=== PATIENT | female | born 1995 | race Caucasian/White ===

== ENCOUNTER 2016-12-26 19:56 | Emergency (ER) | payer BC, OTHER ==
[~2016-12-26] VITALS: Ht 157.5 cm; Wt 51.0 kg
[2016-12-26 20:02] VITALS: TEMP 36.9; Ht 157.5 cm; Wt 51.0 kg
[2016-12-26] MEDS ORDERED: SERT50TA PO (20:14)
[2016-12-26 21:01] LABS: BASO % 0.9 %; BASO ABS # 0.06 K/uL (0-0.2); COMPLETE YES; EOS % 0.8 %; IG% 0.2 %; LYMPH % 44.7 %; LYMPH ABS # 2.88 K/uL (1.2-3.4); MEAN CELL VOLUME 86.6 fL (80-100); MEAN CORPUSCULAR HEMOGLOBIN 30.5 pg (25-34); MEAN CORPUSCULAR HGB CONC 35.2 g/dl (32-36); MEAN PLATELET VOLUME 8.7 fL (7.4-10.4); MONO % 8.2 %; NEUT % 45.2 %; PLATELET COUNT 250 K/uL (130-400); RED BLOOD COUNT 4.85 M/uL (4.2-5.4); WHITE BLOOD COUNT 6.45 K/uL (4.8-10.8)
[2016-12-26 21:09] VITALS: O2SAT 97
[2016-12-26 21:21] LABS: INR 1.1 (0.9-1.1); PARTIAL THROMBOPLASTIN RATIO 1.1; PROTHROMBIN TIME (PATIENT) 11.4 SECONDS (9.0-12.0)
[2016-12-26 21:22] LABS: ALT/SGPT 26 U/L (12-78); BLOOD UREA NITROGEN 16 mg/dl (7-18); BUN/CREATININE RATIO 18.8 (10-20); C-REACTIVE PROTEIN < 0.29 mg/dl (0-0.29); CARBON DIOXIDE 26 mmol/L (21-32); CHLORIDE 105 mmol/L (98-107); CREATININE 0.86 mg/dl (0.60-1.20); GLUCOSE 85 mg/dl (70-99); MAGNESIUM 2.2 mg/dl (1.8-2.4); POTASSIUM 3.4 mmol/L (3.5-5.1); SODIUM 139 mmol/L (136-145)
[2016-12-26 21:33] LABS: ALB/GLOB RATIO 1.4 (0.9-2); ALKALINE PHOSPHATASE 71 U/L (45-117); AST/SGOT 16 U/L (15-37); THYROID STIMULATING HORMONE 0.508 uIu/ml (0.300-4.500)
[2016-12-26 21:40] LABS: URINE APPEARANCE CLEAR (CLEAR); URINE BILIRUBIN NEG (NEG); URINE COLOR YELLOW; URINE NITRITE NEG (NEG); URINE PH 6.5 (4.5-7.5); URINE SPECIFIC GRAVITY 1.015 (1.000-1.030); UROBILINOGEN NEG (NEG); ZZUR CULT IF INDIC CLEAN CATCH NO
[2016-12-26 21:52] LABS: CALCIUM 8.6 mg/dl (8.5-10.1)
[2016-12-26 21:54] LABS: MANUAL MICROSCOPIC REQUIRED? NO; REVIEW REQ? NO
[2016-12-26 22:02] LABS: LYME DISEASE AB IGG NEG (NEG)
[2016-12-26 22:04] LABS: BENZODIAZEPINE, URINE NEG (NEG); COCAINE,URINE NEG (NEG); PHENCYCLIDINE, URINE NEG (NEG)
[2016-12-26 22:05] LABS: LYME DISEASE AB IGM POS (NEG)
--- NOTE | 2016-12-26 22:47 | DIAGNOSTIC IMAGING REPORT ---
CT HEAD WITHOUT CONTRAST (CT) CLINICAL HISTORY: Head trauma, status. Memory difficulties. Emesis. Incontinence. COMPARISON STUDY: No previous studies for comparison. TECHNIQUE: Axial CT of the brain is performed from the vertex to the skull base. IV contrast was not administered for this examination. CT DOSE: 537.48 mGy.cm FINDINGS: No intra or extra-axial mass lesions are visualized. There is no CT evidence of acute cortical infarction. There is no evidence of midline shift. There is no acute hemorrhage. No calvarial fractures are visualized. There is no evidence of pathologic ventricular dilatation. There is no evidence of acute sinusitis IMPRESSION: Normal noncontrast head CT. Electronically signed by: Pedro Castanon M.D. 12/26/2016 10:45 PM Dictated Date/Time: 12/26/2016 10:45 PM
[2016-12-26] MEDS ORDERED: DOXYCYCLINE HYCLATE 100 MG CAP PO STA (23:51)
[2016-12-26] MEDS ORDERED: DOXY-300 PO (23:55)
--- NOTE | 2016-12-26 23:57 | EMERGENCY ROOM VISIT NOTE ---
History First contact with patient: 20:17 Chief Complaint: HEAD PAIN Stated Complaint: PREVIOUS CONCUSION HISTORY - HIT HEAD OFF WALL History of Present Illness The patient is a 21 year old female who presents to the Emergency Room via private vehicle accompanied by male with complaints of "previous concussion history hit head off wall". The patient states that she has a history of trauma to the head. She states that this past while at work she actually struck her head on the wall. There was no loss of consciousness. She developed a headache and since that event has had some memory loss. She states that today, she eczema slipped on the hardwood floor while doing yoga and fell backwards striking her head off of a water heater. Since her other head injury there as been associated trouble concentrating. She also states that she developed bowel trouble about 1 month ago, when she has either diarrhea or constipation, and wants week is incontinent of her bowels. She also had a swollen throat and left side in the past which she was given a Z-Michael recently. She has no abdominal pain and back pain of which is very minimal to nonexistent at this time. She has been sleeping a lot. There is associated which she believes is fevers. She denies any chance of or chills. Review of Systems A complete 10-point Review of Systems was discussed with the patient, with pertinent positives and negatives listed in the History of Present Illness. All remaining Review of Systems questions can be considered negative unless otherwise specified. Past Medical/Surgical History Concussion, high blood pressure, gallbladder, nystagmus Family History Diabetes, heart disease, blood pressure, cancer, lung disease, gallbladder disease, kidney disease or stones, thyroid problems Social History Smoking Status: Never Smoker Current/Historical Medications Scheduled Doxycycline (Monohydrate) (Doxycycline), 100 MG PO BID Sertraline (Zoloft), 75 MG PO QAM Allergies Coded Allergies: Codeine (Unverified Allergy, Unknown, VOMITING, 12/26/16) Diphenhydramine (Unverified Allergy, Unknown, hyper, 12/26/16) Prochlorperazine (Unverified Allergy, Unknown, irritable, 12/26/16) Physical Exam Vital Signs Date Time Temp Pulse Resp B/P (MAP) Pulse Ox O2 Delivery O2 Flow Rate FiO2 12/26/16 23:58 65 16 104/66 98 Room Air 12/26/16 22:44 63 14 103/65 96 Room Air 12/26/16 21:56 61 14 96 12/26/16 21:56 69 12/26/16 21:39 68 16 96/54 95 Room Air 12/26/16 21:35 96/54 12/26/16 21:09 97 Room Air 12/26/16 21:05 65 16 104/61 97 Room Air 12/26/16 20:02 36.9 104 16 117/74 98 Room Air Physical Exam VITAL SIGNS - Vital signs and nursing notes were reviewed. Patient is afebrile , blood pressure 117/74, tachycardic at a rate of 104 bpm, and is saturating well on room air 98%. GENERAL -21-year-old female appearing her stated age who is in no acute distress. Communicates well with provider and answers questions appropriately. SKIN - Without rashes. No petechial rashes. HEAD - NC/AT. EYES - PERRL with EOMI bilaterally. There is horizontal nystagmus. Sclera anicteric. Palpebral conjunctiva pink and moist with no injection noted. EARS - No deformities of external structures noted on gross examination bilaterally. No hemotympanum present. No tympanic perforation noted. Handle of malleus, umbo, cone of light, pars tensa/flaccid all easily visualized. NOSE - Midline and without cyanosis. No epistaxis or clear watery discharge noted. Septum midline without deviation. No septal hematoma noted. No overlying ecchymosis noted. MOUTH/OROPHARYNX - Without perioral cyanosis. Tongue midline with equal elevation of palate bilaterally. No blood noted in the oropharynx. No tonsillar hypertrophy, erythema, or exudates noted. No dental fractures noted. LUNGS - Chest wall symmetric without accessory muscle use, intercostals retractions, or central cyanosis. Normal vesicular breath sounds CTA B/L. No wheezes, rales, or rhonchi appreciated. CARDIAC - RRR with S1/S2. No murmur, rubs, or gallops appreciated. ABDOMEN - Abdominal contour normal and without pulsations or visible masses. BS normoactive all four quadrants.No tenderness, palpable masses, hepatosplenomegaly, or ascites noted. EXTREMITIES - No gross deformities noted of the extremities. No tenderness to palpation of the extremities. +5/5 strength noted in UE/LE bilaterally. NEUROLOGIC - Cranial nerves II through XII grossly intact. Sensory intact to light touch throughout. PSYCH - A&O Pt is very pleasant and interacts well with examiner. Medical Decision & Procedures ER Provider Diagnostic Interpretation: CT HEAD WITHOUT CONTRAST (CT) CLINICAL HISTORY: Head trauma, status. Memory difficulties. Emesis. Incontinence. COMPARISON STUDY: No previous studies for comparison. TECHNIQUE: Axial CT of the brain is performed from the vertex to the skull base. IV contrast was not administered for this examination. CT DOSE: 537.48 mGy.cm FINDINGS: No intra or extra-axial mass lesions are visualized. There is no CT evidence of acute cortical infarction. There is no evidence of midline shift. There is no acute hemorrhage. No calvarial fractures are visualized. There is no evidence of pathologic ventricular dilatation. There is no evidence of acute sinusitis IMPRESSION: Normal noncontrast head CT. Electronically signed by: Pedro Castanon M.D. 12/26/2016 10:45 PM Dictated Date/Time: 12/26/2016 10:45 PM Laboratory Results 12/26/16 20:45 Red Blood Count 4.85, Mean Corpuscular Volume 86.6, Mean Corpuscular Hemoglobin 30.5, Mean Corpuscular Hemoglobin Concent 35.2, Mean Platelet Volume 8.7, Neutrophils (%) (Auto) 45.2, Lymphocytes (%) (Auto) 44.7, Monocytes (%) (Auto) 8.2, Eosinophils (%) (Auto) 0.8, Basophils (%) (Auto) 0.9, Neutrophils # (Auto) 2.92, Lymphocytes # (Auto) 2.88, Monocytes # (Auto) 0.53, Eosinophils # (Auto) 0.05, Basophils # (Auto) 0.06 12/26/16 20:45 Test 12/26/16 20:45 12/26/16 21:25 White Blood Count 6.45 K/uL (4.8-10.8) Red Blood Count 4.85 M/uL (4.2-5.4) Hemoglobin 14.8 g/dL (12.0-16.0) Hematocrit 42.0 % (37-47) Mean Corpuscular Volume 86.6 fL (80-100) Mean Corpuscular Hemoglobin 30.5 pg (25-34) Mean Corpuscular Hemoglobin Concent 35.2 g/dl (32-36) Platelet Count 250 K/uL (130-400) Mean Platelet Volume 8.7 fL (7.4-10.4) Neutrophils (%) (Auto) 45.2 % Lymphocytes (%) (Auto) 44.7 % Monocytes (%) (Auto) 8.2 % Eosinophils (%) (Auto) 0.8 % Basophils (%) (Auto) 0.9 % Neutrophils # (Auto) 2.92 K/uL (1.4-6.5) Lymphocytes # (Auto) 2.88 K/uL (1.2-3.4) Monocytes # (Auto) 0.53 K/uL (0.11-0.59) Eosinophils # (Auto) 0.05 K/uL (0-0.5) Basophils # (Auto) 0.06 K/uL (0-0.2) RDW Standard Deviation 37.9 fL (36.4-46.3) RDW Coefficient of Variation 12.0 % (11.5-14.5) Immature Granulocyte % (Auto) 0.2 % Immature Granulocyte # (Auto) 0.01 K/uL (0.00-0.02) Prothrombin Time 11.4 SECONDS (9.0-12.0) Prothromb Time International Ratio 1.1 (0.9-1.1) Activated Partial Thromboplast Time 29.4 SECONDS (21.0-31.0) Partial Thromboplastin Ratio 1.1 Anion Gap 8.0 mmol/L (3-11) Est Creatinine Clear Calc Drug Dose 81.9 ml/min Estimated GFR () 111.9 Estimated GFR (Non- 96.6 BUN/Creatinine Ratio 18.8 (10-20) Calcium Level 8.6 mg/dl (8.5-10.1) Magnesium Level 2.2 mg/dl (1.8-2.4) Total Bilirubin 1.9 mg/dl (0.2-1) Aspartate Amino Transf (AST/SGOT) 16 U/L (15-37) Alanine Aminotransferase (ALT/SGPT) 26 U/L (12-78) Alkaline Phosphatase 71 U/L (45-117) C-Reactive Protein < 0.29 mg/dl (0-0.29) Total Protein 7.3 gm/dl (6.4-8.2) Albumin 4.3 gm/dl (3.4-5.0) Globulin 3.0 gm/dl (2.5-4.0) Albumin/Globulin Ratio 1.4 (0.9-2) Lipase 91 U/L (73-393) Thyroid Stimulating Hormone (TSH) 0.508 uIu/ml (0.300-4.500) Lyme Disease IgG Antibody NEG (NEG) Urine Color YELLOW Urine Appearance CLEAR (CLEAR) Urine pH 6.5 (4.5-7.5) Urine Specific [place] 1.015 (1.000-1.030) Urine Protein NEG (NEG) Urine Glucose (UA) NEG (NEG) Urine Ketones NEG (NEG) Urine Occult Blood NEG (NEG) Urine Nitrite NEG (NEG) Urine Bilirubin NEG (NEG) Urine Urobilinogen NEG (NEG) Urine Leukocyte Esterase NEG (NEG) Urine Test NEG (NEG) Urine Opiates Screen NEG (NEG) Urine Methadone, Qualitative NEG (NEG) Urine Barbiturates NEG (NEG) Urine Phencyclidine (PCP) Level NEG (NEG) Ur Amphetamine/Methamphetamine NEG (NEG) MDMA (Ecstasy) Screen NEG (NEG) Urine Benzodiazepines Screen NEG (NEG) Urine Cocaine Metabolite NEG (NEG) Urine Marijuana (THC) POS (NEG) Medications Administered Medications (Trade) Dose Ordered Sig/Gaston Route Start Time Stop Time Status Last Admin Dose Admin Doxycycline Hyclate (Vibramycin Cap) 200 mg ONE STAT PO 12/26/16 23:51 12/26/16 23:53 DC 12/27/16 00:01 100 MG Medical Decision Patient was seen and evaluated as above. After obtaining a thorough history and physical examination IV access was initiated and a workup was performed. Patient was asked to us today with symptoms to suggest that of likely concussion , but also that of fecal incontinence once weekly, constipation, diarrhea, nausea, vomiting, fever. CT scan was obtained of the head after verifying of . This was negative. CBC reveals no leukocytosis or anemia. Coagulation studies unremarkable. CMP reveals potassium slightly low at 3.4, bilirubin high at 1.9. Patient has been worked up before for the high bilirubin. Her kidney function is excellent. Her C-reactive protein inflammatory marker is within normal limits. TSH and lipase are unremarkable. Urine is unremarkable. Urine test negative. Urine drug screen positive for marijuana. IgM positive for Lyme. IgG negative. Further band testing pending. The case was discussed with my attending, the decision was made to treat the patient for Lyme disease. She was treated with Doxy 21 days. She was educated upon worrisome symptoms in which to return, as instructed to follow-up with the family doctor regarding today's visit, had questions and provided discharge, and was discharged home in good condition. I do not suspect any emergent cause of the patient's symptoms at this time, and believes she is expressing a concussion. I cannot explain the fecal incontinence, but it seems that it is occurring weekly, and not each day. I do not suspect any emergent cause of this. She has no concern leukocytosis. In the evaluation and treatment of this patient, the following differential diagnoses were considered: Concussion, Contrecoup Injury, Brain Tumor, Depression, Encephalitis, Hypothyroidism, Meningitis, CVA, TIA, Migraine, Cluster Headache, Intracranial Abnormality, Intracranial Hemorrhage, Subdural Hematoma, Subarachnoid Hemorrhage, Hydrocephalus, abdominal etiologies, Lyme disease, among others. Impression Primary Impression: Concussion Additional Impressions: Closed head injury Hypokalemia IGM- positive lyme test Departure Information Dispostion Home / Self-Care Condition GOOD Prescriptions Doxycycline (Monohydrate) (Doxycycline) 100 Mg Cap 100 MG PO BID, #41 TABS Prov: Buddy Gipson PA-C 12/26/16 Referrals Cathy Raymundo D.O. (PCP) Patient Instructions My [facility] Additional Instructions You have been treated in the Emergency Department for a Closed Head Injury, nausea, vomiting, memory disturbances, incontinence. CT Scan of your head/brain demonstrated no acute bleeding or other abnormalities. This does not completely rule out the risk for future damage to the brain. You have been prescribed Doxycycline to be taken as prescribed. This is an antibiotic. All antibiotics have the potential to cause diarrhea. Stop this medication and contact a medical provider if you were to develop any significant adverse side effects including: wheezing, shortness of breath, passing out, vomiting, or a diffuse rash. Always take antibiotics as directed and COMPLETE the ENTIRE course regardless of the improvement of your symptoms. Protect yourself with sunscreen while on this antibiotic as it increases your skin's sensitivity to the light and cause bad sunburns. In addition, you should be sure to take this pill after eating. Make sure the pill is completely swallowed as this medication can cause irritation to the lining of the esophagus. Do NOT drink milk or eat anything with large amounts of Calcium in them 1 hour prior to taking this medication as this will decrease the effectiveness of the medication. For pain control, you can use the following [id number] medicines (if >12 yo): - Regular strength (325mg/tab) Tylenol (acetaminophen) 2 tabs every 4-6 hours as needed. Do not exceed 12 tablets in a 24 hour period. Avoid taking more than 3 grams (3000 mg) of Tylenol per day. This includes any other sources of acetaminophen you may take on a regular basis. - Regular strength (200 mg/tab) Advil (ibuprofen) 1-2 tabs every 4-6 hours as needed. Do not exceed a dose of 3200 mg per day. You should relax in a quiet, dark place for the rest of the day. Avoid any possible triggers including: cigarette smoke, caffeine, nicotine, chocolate, wine, beer, loud noises or music, or bright lights. You should schedule a follow-up appointment in 2-3 days with your Primary Care Provider or established Neurologist for further evaluation and treatment of your Headache, lyme test and other symptoms. Return to the Emergency Department if your current symptoms worsen despite treatment course outlined above, or if you develop any of the following symptoms : intractable pain despite aforementioned treatment course, visual disturbances , loss of vision, unilateral weakness or facial drooping, slurring of speech, loss of coordination, or loss of consciousness. Please return to the emergency department with any new/concerning symptoms. Problem Qualifiers
[2016-12-26 23:58] VITALS: BP 104/66; PULSE 65; O2SAT 98
[2017-01-01 12:11] LABS: 18KDIGG BAND NONREACTIVE (NONREACTIVE); 23KDIGG BAND REACTIVE (NONREACTIVE); 23KDIGM BAND REACTIVE (NONREACTIVE); 28KDIGG BAND NONREACTIVE (NONREACTIVE); 30KDIGG BAND NONREACTIVE (NONREACTIVE); 39KDIGG BAND NONREACTIVE (NONREACTIVE); 39KDIGM BAND NONREACTIVE (NONREACTIVE); 41KDIGG BAND REACTIVE (NONREACTIVE); 41KDIGM BAND REACTIVE (NONREACTIVE); 45KDIGG BAND NONREACTIVE (NONREACTIVE); 58KDIGG BAND NONREACTIVE (NONREACTIVE); 66KDIGG BAND NONREACTIVE (NONREACTIVE); 93KDIGG BAND NONREACTIVE (NONREACTIVE)
== END 2016-12-27 00:03 | disposition home or self-care (01) ==
LOC: C.EDB 19:58
DX: S06.0X0A Concussion without loss of consciousness, initial encounter (principal); E87.6 Hypokalemia; A69.20 Lyme disease, unspecified; R41.3 Other amnesia; R11.10 Vomiting, unspecified; W01.198A Fall on same level from slipping, tripping and stumbling with subsequent striking against other object, initial encounter; Y92.89 Other specified places as the place of occurrence of the external cause; R15.9 Full incontinence of feces; Z82.49 Family history of ischemic heart disease and other diseases of the circulatory system; Z83.3 Family history of diabetes mellitus

== ENCOUNTER 2017-02-06 14:49 | Emergency (ER) | payer BC, OTHER ==
[~2017-02-06] VITALS: Ht 154.9 cm; Wt 50.1 kg
[~2017-02-06 14:49] MED LIST: DOXY-300 PO; SERT50TA PO
[2017-02-06 15:07] VITALS: TEMP 36.6; Ht 154.9 cm; Wt 50.1 kg
[2017-02-06] MEDS ORDERED: CITA40TA4 PO (15:21)
[2017-02-06 15:45] VITALS: O2SAT 99
[2017-02-06] MEDS ORDERED: SODIUM CHLORIDE 0.9% 1000ML 1,000 ML IV ONE (15:45)
[2017-02-06 16:16] LABS: URINE APPEARANCE CLEAR (CLEAR); URINE BILIRUBIN NEG (NEG); URINE COLOR YELLOW; URINE EPITHELIAL CELL AUTO >30 /lpf (0-5); URINE NITRITE NEG (NEG); URINE PH 6.5 (4.5-7.5); URINE SPECIFIC GRAVITY 1.011 (1.000-1.030); UROBILINOGEN NEG (NEG); ZZUR CULT IF INDIC CLEAN CATCH NO
[2017-02-06 16:17] LABS: MANUAL MICROSCOPIC REQUIRED? NO; REVIEW REQ? NO
[2017-02-06 16:24] LABS: POINT OF CARE TROPONIN I < 0.030 ng/ml (0-0.045)
[2017-02-06 16:37] LABS: BENZODIAZEPINE, URINE NEG (NEG); COCAINE,URINE NEG (NEG); PHENCYCLIDINE, URINE NEG (NEG)
--- NOTE | 2017-02-06 16:39 | DIAGNOSTIC IMAGING REPORT ---
RIGHT RIBS UNILATERAL WITH PA CHEST CLINICAL HISTORY: Syncope. Right side rib injury Right trauma. Pain. COMPARISON STUDY: None FINDINGS: Normal study IMPRESSION: Normal study The above report was generated using voice recognition software. It may contain grammatical, syntax or spelling errors. Electronically signed by: Raheem Montgomery M.D. 02/06/2017 4:38 PM Dictated Date/Time: 02/06/2017 4:37 PM
[2017-02-06 16:59] LABS: BASO % 0.9 %; BASO ABS # 0.05 K/uL (0-0.2); COMPLETE YES; EOS % 0.9 %; HEMATOCRIT 41.9 % (37-47); LYMPH ABS # 2.55 K/uL (1.2-3.4); MEAN CELL VOLUME 87.8 fL (80-100); MEAN CORPUSCULAR HEMOGLOBIN 30.8 pg (25-34); MEAN CORPUSCULAR HGB CONC 35.1 g/dl (32-36); MEAN PLATELET VOLUME 9.4 fL (7.4-10.4); NEUT % 42.2 %; PLATELET COUNT 244 K/uL (130-400); RED BLOOD COUNT 4.77 M/uL (4.2-5.4); WHITE BLOOD COUNT 5.42 K/uL (4.8-10.8)
[2017-02-06 17:07] LABS: BUN/CREATININE RATIO 14.9 (10-20); CALCIUM 9.1 mg/dl (8.5-10.1); CREATININE 0.81 mg/dl (0.60-1.20); MAGNESIUM 2.3 mg/dl (1.8-2.4); POTASSIUM 3.8 mmol/L (3.5-5.1)
[2017-02-06 17:18] LABS: ALB/GLOB RATIO 1.5 (0.9-2); THYROID STIMULATING HORMONE 1.7 uIu/ml (0.300-4.500)
[2017-02-06 18:04] VITALS: BP 116/84; PULSE 59; O2SAT 100
--- NOTE | 2017-02-06 18:48 | EMERGENCY ROOM VISIT NOTE ---
History First contact with patient: 15:19 Chief Complaint: SYNCOPE Stated Complaint: FALL, NOSE BLEED, RUQ PAIN Nursing Triage Summary: Pt states, "Last night I was mowing the lawn. I was pretty hot. I passed out and my boyfriend caught me. I scratched my right rib in the back off a closet. I ate a banana with peanut butter and drank some water and about a half hour later I got a bloody nose. I had no trauma to my nose. I have been confused. I was dx here three months ago with Lyme's disease. I've been having RUQ pain and green stool." History of Present Illness The patient is a 21 year old female who presents to the Emergency Room with several complaints. The patient's primary complaint is that she had a syncopal episode last night. The patient states that she was mowing the lawn in the heat , finished, and was feeling very hot when she went back inside. She felt flushed and drank some water. The patient states that she had a syncopal episode in front of her boyfriend, who was able to grab her and kept her from striking her head. She believes that she struck her right side posterior chest on a closet door. The patient was able to get up shortly afterwards, eat a banana and peanut butter, and then returned to normal. The patient states that about half an hour later she had a singular episode of epistaxis that lasted for a few minutes. She did not strike her head or have seizure-like activity with the syncopal episode. She is without lightheadedness, dizziness, or chest pain. She does report intermittent episodes of shortness of breath, which she attributes to changing from Zoloft to Celexa. The patient additionally was treated for Lyme disease 2 months ago and completed her antibiotics as prescribed. She had one episode of green stool today, which is different for her. She has not had fever or chills. She denies chance of . She rates her overall discomfort a 6/10 and has not taken anything [id number] for her symptoms. Review of Systems More than 10 systems were reviewed and otherwise negative with the exception of history of present illness. Past Medical/Surgical History No chronic medical disease Family History No pertinent family history Social History Smoking Status: Never Smoker Housing Status: lives with significant other Current/Historical Medications Scheduled Citalopram (Citalopram Hydrobromide), Unknown Dose PO DAILY Allergies Coded Allergies: Codeine (Unverified Allergy, Unknown, VOMITING, 12/26/16) Diphenhydramine (Unverified Allergy, Unknown, hyper, 12/26/16) Prochlorperazine (Unverified Allergy, Unknown, irritable, 12/26/16) Physical Exam Vital Signs Date Time Temp Pulse Resp B/P (MAP) Pulse Ox O2 Delivery O2 Flow Rate FiO2 02/06/17 18:04 59 20 116/84 100 02/06/17 17:19 52 16 108/67 100 Room Air 02/06/17 16:37 50 02/06/17 15:50 57 16 117/80 99 Room Air 66 122/87 73 121/78 02/06/17 15:45 99 Room Air 02/06/17 15:07 36.6 76 18 129/78 100 Room Air Physical Exam VITALS: Vitals are noted on the nurse's note and reviewed by myself. Vital signs stable. GENERAL: Well-developed, well-nourished, white female, who is in no acute distress and resting comfortably. Patient is cooperative with the examination. HEAD: Normocephalic atraumatic. EARS: External ear normal. External auditory canals clear, tympanic membranes pearly john without erythema or effusion bilaterally. EYES: Pupils equal round and reactive to light and accommodation. Conjunctivae without injection, sclerae without icterus. Extraocular movements intact. NOSE: Patent, turbinates without inflammation or discharge. MOUTH: Mucous membranes moist. Tonsils are not enlarged. Pharynx without erythema, blood, or exudate. Uvula midline. Airway patent. NECK: Supple without nuchal rigidity. No lymphadenopathy. No thyromegaly. Cervical spine is nontender. HEART: Regular rate and rhythm without murmurs gallops or rubs. LUNGS: Clear to auscultation bilaterally without wheezes, rales or rhonchi. No retractions or accessory muscle use. CHEST WALL: Mild tenderness appreciated over the right lateral chest wall without ecchymosis or edema. No flail chest. ABDOMEN: Positive normal bowel sounds x 4. Soft, nontender, without masses or organomegaly. No guarding or rebound tenderness. MUSCULOSKELETAL: No muscle atrophy, erythema, or edema noted. Full range of motion without joint tenderness in all extremities. No tenderness to palpation. Normal gait. Strength 5/5 throughout. NEURO: Patient was alert and oriented to person place and time. CN II through XII grossly intact. Deep tendon reflexes 2+ throughout. No focal neurological deficits. GCS 15. SKIN: The skin was without rashes, erythema, edema, or bruising. Capillary reflex less than 2 seconds. Medical Decision & Procedures ER Provider Diagnostic Interpretation: RIGHT RIBS UNILATERAL WITH PA CHEST CLINICAL HISTORY: Syncope. Right side rib injury Right trauma. Pain. COMPARISON STUDY: None FINDINGS: Normal study IMPRESSION: Normal study Laboratory Results 02/06/17 15:55 Red Blood Count 4.77, Mean Corpuscular Volume 87.8, Mean Corpuscular Hemoglobin 30.8, Mean Corpuscular Hemoglobin Concent 35.1, Mean Platelet Volume 9.4, Neutrophils (%) (Auto) 42.2, Lymphocytes (%) (Auto) 47.0, Monocytes (%) (Auto) 9.0, Eosinophils (%) (Auto) 0.9, Basophils (%) (Auto) 0.9, Neutrophils # (Auto) 2.28, Lymphocytes # (Auto) 2.55, Monocytes # (Auto) 0.49, Eosinophils # (Auto) 0.05, Basophils # (Auto) 0.05 02/06/17 15:55 Test 02/06/17 15:15 02/06/17 15:55 02/06/17 16:07 Urine Color YELLOW Urine Appearance CLEAR (CLEAR) Urine pH 6.5 (4.5-7.5) Urine Specific [place] 1.011 (1.000-1.030) Urine Protein NEG (NEG) Urine Glucose (UA) NEG (NEG) Urine Ketones NEG (NEG) Urine Occult Blood TRACE (NEG) Urine Nitrite NEG (NEG) Urine Bilirubin NEG (NEG) Urine Urobilinogen NEG (NEG) Urine Leukocyte Esterase NEG (NEG) Urine WBC (Auto) 1-5 /hpf (0-5) Urine RBC (Auto) 0-4 /hpf (0-4) Urine Hyaline Casts (Auto) 1-5 /lpf (0-5) Urine Epithelial Cells (Auto) >30 /lpf (0-5) Urine Bacteria (Auto) NEG (NEG) Urine Test NEG (NEG) Urine Opiates Screen NEG (NEG) Urine Methadone, Qualitative NEG (NEG) Urine Barbiturates NEG (NEG) Urine Phencyclidine (PCP) Level NEG (NEG) Ur Amphetamine/Methamphetamine NEG (NEG) MDMA (Ecstasy) Screen NEG (NEG) Urine Benzodiazepines Screen NEG (NEG) Urine Cocaine Metabolite NEG (NEG) Urine Marijuana (THC) POS (NEG) White Blood Count 5.42 K/uL (4.8-10.8) Red Blood Count 4.77 M/uL (4.2-5.4) Hemoglobin 14.7 g/dL (12.0-16.0) Hematocrit 41.9 % (37-47) Mean Corpuscular Volume 87.8 fL (80-100) Mean Corpuscular Hemoglobin 30.8 pg (25-34) Mean Corpuscular Hemoglobin Concent 35.1 g/dl (32-36) Platelet Count 244 K/uL (130-400) Mean Platelet Volume 9.4 fL (7.4-10.4) Neutrophils (%) (Auto) 42.2 % Lymphocytes (%) (Auto) 47.0 % Monocytes (%) (Auto) 9.0 % Eosinophils (%) (Auto) 0.9 % Basophils (%) (Auto) 0.9 % Neutrophils # (Auto) 2.28 K/uL (1.4-6.5) Lymphocytes # (Auto) 2.55 K/uL (1.2-3.4) Monocytes # (Auto) 0.49 K/uL (0.11-0.59) Eosinophils # (Auto) 0.05 K/uL (0-0.5) Basophils # (Auto) 0.05 K/uL (0-0.2) RDW Standard Deviation 39.6 fL (36.4-46.3) RDW Coefficient of Variation 12.3 % (11.5-14.5) Immature Granulocyte % (Auto) 0.0 % Immature Granulocyte # (Auto) 0.00 K/uL (0.00-0.02) Anion Gap 4.0 mmol/L (3-11) Est Creatinine Clear Calc Drug Dose 82.8 ml/min Estimated GFR () 120.3 Estimated GFR (Non- 103.8 BUN/Creatinine Ratio 14.9 (10-20) Calcium Level 9.1 mg/dl (8.5-10.1) Magnesium Level 2.3 mg/dl (1.8-2.4) Total Bilirubin 1.6 mg/dl (0.2-1) Aspartate Amino Transf (AST/SGOT) 14 U/L (15-37) Alanine Aminotransferase (ALT/SGPT) 18 U/L (12-78) Alkaline Phosphatase 65 U/L (45-117) Total Protein 7.3 gm/dl (6.4-8.2) Albumin 4.4 gm/dl (3.4-5.0) Globulin 2.9 gm/dl (2.5-4.0) Albumin/Globulin Ratio 1.5 (0.9-2) Lipase 114 U/L (73-393) Thyroid Stimulating Hormone (TSH) 1.700 uIu/ml (0.300-4.500) Bedside D-Dimer 109 ng/mlFEU (0-450) Bedside Troponin I < 0.030 ng/ml (0-0.045) Medications Administered Medications (Trade) Dose Ordered Sig/[place] Route Start Time Stop Time Status Last Admin Dose Admin Sodium Chloride 1,000 ml @ 999 mls/hr Q1H1M ONCE IV 02/06/17 15:45 02/06/17 16:45 DC 02/06/17 15:59 999 MLS/HR ECG Change: Sinus bradycardia @53bpm Otherwise normal ECG When compared with ECG of 26-DEC-2016 21:02, No significant change was found ED Course Physical exam and history were performed. Nursing notes, EMR, and Medication List were personally reviewed. Patient appears to have experienced a syncopal episode yesterday. She does not appear toxic on examination. IV access was established and labs were obtained. The patient was hydrated with normal saline. EKG was performed and was sinus bradycardia without other significant findings. Plain films were ordered. The patient was placed on the integration project manager. She was not orthostatic. The patient's blood work is as above and was reviewed. She does not have a significant elevated white blood cell count, gross anemia, bandemia, or significant electrolyte imbalance. Transaminases are nondiagnostic. Troponin 1 is negative. TSH is euthyroid state. X-rays are without evidence of rib fracture or other significant findings. The patient's urine is negative for . It does not appear consistent with infection. She is positive for marijuana. Overall the patient appears stable for discharge home. I suspect the patient's episode was likely related to dehydration and possibly hypoglycemia. There is also the consideration that marijuana may have played a role in her symptoms. I explained the importance of avoiding substances such as marijuana, caffeine, alcohol, nicotine. She was asked to follow with her primary care physician for further care and management. She was otherwise invited back to the ER with any new, worsening, or concerning symptoms. The chart was completed utilizing [employer] Voice Recognition Software. Grammatical errors, random word insertions, pronoun errors, and incomplete sentences are an occasional consequence of this system due to software limitations, ambient noise, and hardware issues. Any formal questions or concerns about the content, text, or information contained within the body of this dictation should be directly addressed to the provider for clarification. . Medical Decision Differential diagnosis: Etiologies such as vasovagal event, infection, hypoglycemia, electrolyte abnormalities, cardiac sources, intracerebral event, toxicologic, neurologic, as well as others were entertained. Impression Primary Impression: Syncope Departure Information Referrals No Doctor, Assigned (PCP) Patient Instructions [facility]
== END 2017-02-06 18:04 | disposition home or self-care (01) ==
LOC: C.EDB 14:51 → C.EDC 18:04
DX: R55 Syncope and collapse (principal)